=== PATIENT | female | born 1970 | race Caucasian/White ===

== ENCOUNTER 2023-08-09 15:01 | Inpatient (IN) ==
[2023-08-09] MEDS ORDERED: Al Hydrox/Mg Hydrox/Simet LIQ 30 ML UDC PO PRN (15:40)
[2023-08-10 08:09] LABS: HDL Cholesterol 103.6 mg/dL
[2023-08-10] MEDS: Vitamin THERAPEUTIC TAB PO SCH (10:48)
[2023-08-11] MEDS: Vitamin THERAPEUTIC TAB PO SCH (16:14)
[2023-08-12] MEDS: Vitamin THERAPEUTIC TAB PO SCH (09:26)
== END 2023-08-12 11:00 | disposition home or self-care (01) | DRG 885 ==
LOC: BSU 17:42
PROVIDERS: ADMIT Psychiatry & Neurology Psychiatry; ATTEND Psychiatry & Neurology Psychiatry